=== PATIENT | female | born 1960 | race Caucasian/White ===

== ENCOUNTER → 2016-11-18 | Day surgery (SDC) | payer BC ==
[~2016-11-18] MED LIST: ACETAMINOPHEN PO; ANUSOL SUPP1 SUPP; ESTRACE2 M1 PO; ESTRACE2 MG PO; MOBIC PO; PHENERGAN SUPP25 MG PR; PHENERGAN25 MG PO; TRAMADOL HCL50 M2 PO; VICODIN 5/1 TAB 5/50 PO
--- NOTE | ~2016-11-18 | OR ---
Unit #: [id number] #: [id number] Patient: MUSA LANGLEY [id number] [facility] [place] [facility]. [place], [place] [address] [id number] MR#: [id number] NAME: MUSA LANGLEY. ROOM: Date of Procedure: 11/18/2016 Admission Date: 11/18/2016 Surgeon: Arie Weiss M.D. : 1960 Attending Physician: Arie Weiss M.D. Primary Care Physician: Og Benavidez M.D. OPERATIVE REPORT PREOPERATIVE DIAGNOSIS The patient has presented with history of hematochezia. PROCEDURE PERFORMED Colonoscopy up to cecum and terminal ileum with excellent preparation and good visualization. POSTOPERATIVE DIAGNOSES Scant sigmoid diverticulosis, otherwise normal examination up to cecum and terminal ileum. The quality of the prep was excellent. No polyps were seen. In addition, the patient had no internal or external hemorrhoids. RECOMMENDATIONS Reassurance is in order. The patient will be seen in the office in 3 to 4 months' time. SEDATION USED MAC. DESCRIPTION OF PROCEDURE Following detailed explanation of potential risks and complications of a colonoscopy, namely perforation, bleeding, and complication related to sedation, the patient was brought to GI lab and laid in the left lateral decubitus position. A digital rectal examination was performed, which was normal. Lubricated tip of the Olympus video colonoscope was inserted through the anus and advanced under direct vision. The scope was advanced past rectosigmoid into descending colon. Scant small diverticula were noted in this area. The scope tip was then navigated all the way up to cecum with visualization of the ileocecal valve and the appendiceal orifice. Preparation was excellent with good visualization and photodocumentation was obtained. Last several inches of the terminal ileum were also visualized after intubation of the ileocecal valve and appeared normal. Successive segments of the colonic mucosa were examined upon withdrawal and appeared unremarkable. There being no polyps, mass lesions, or AVMs. The patient did not have any abnormal findings other than the scant sigmoid diverticula. No hemorrhoids were seen at the anal verge. The scope was then withdrawn and the patient returned to the recovery area. She tolerated the procedure without any postprocedure complications. Dictated by... Unit #: [id number] #: [id number] Patient: MUSA LANGLEY M.D. AK/modl TD: 11/18/2016 13:37 JOB #: [id number] OPERATIVE REPORT Page 1 of 1 X Arie Weiss MD PROCEDURE OPERATIVE NOTE
== END | disposition home or self-care (01) ==
LOC: COPS 06:58
DX: K57.30 Diverticulosis of large intestine without perforation or abscess without bleeding (principal); M19.90 Unspecified osteoarthritis, unspecified site; Z87.891 Personal history of nicotine dependence; Z87.442 Personal history of urinary calculi; Z79.899 Other long term (current) drug therapy; Z98.890 Other specified postprocedural states; Z90.710 Acquired absence of both cervix and uterus
CPT/HCPCS: J2250